=== PATIENT | male | born 1935 | race Caucasian/White ===

== ENCOUNTER 2018-03-08 18:11 | Emergency (ER) | payer MEDICARE ==
[~2018-03-08] VITALS: Ht 180.3 cm; Wt 67.1 kg
--- NOTE | ~2018-03-08 | EKG ---
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
[~2018-03-08 18:11] MED LIST: ASPIRIN81 M1 PO; DYRENIUM50 MG PO; SIMVASTATIN10 MG PO; VASOTEC2.5 MG PO
[2018-03-08 19:14] LABS: BILIRUBIN NEGATIVE (NEGATIVE); BLOOD NEGATIVE (NEGATIVE); CLARITY CLEAR (CLEAR); COLOR YELLOW (YELLOW); GLUCOSE NEGATIVE (NEGATIVE); KETONE TRACE (NEGATIVE); LEUKO ESTERASE NEGATIVE (NEGATIVE); NITRITE NEGATIVE (NEGATIVE); PH 7.5 (5.0-9.0); UROBILINOGEN 0.2 E.U./dl (0.2-1.0)
[2018-03-08 19:30] LABS: BASO % 0.4 % (0.0-1.0); EOS % 0.3 % (1.0-4.0); LYMPH # 1.3 10*3/uL (1.3-4.4); LYMPH % 18.3 % (27.0-41.0); MEAN CELL VOLUME 89.7 fl (80.0-94.0); MEAN CORPUSCULAR HGB 30.6 pg (27.0-31.0); MEAN CORPUSCULAR HGB CONC 34.1 g/dl (33.0-37.0); MEAN PLATELET VOLUME 8.6 fl (9.6-12.3); MONO # 0.4 10*3/uL (0.1-1.0); MONO % 5.4 % (3.0-9.0); NEUT # 5.1 10*3/uL (2.3-7.9); NEUT % 75.3 % (47.0-73.0); PLATELET COUNT AUTOMATED 213 10*3/uL (130-400); RED BLOOD COUNT 4.57 10*6/uL (4.50-5.90); RED CELL DISTRI WIDTH 13.5 % (0-14.5); WHITE BLOOD COUNT 6.8 10*3/uL (4.8-10.8)
[2018-03-08 19:31] LABS: EPITHELIAL CELLS 0-2; RBC 0-2 rbc/hpf (0-2); WBC 0-2 wbc/hpf (0-5)
[2018-03-08 19:48] LABS: ALBUMIN 3.8 gm/dl (3.1-4.5); ALKALINE PHOSPHATASE 91 U/L (45-117); BUN 18 mg/dl (7-24); CHLORIDE 106 mmol/L (98-107); CREATININE 0.89 mg/dL (0.70-1.30); LIPASE 153 U/L (73-393); POTASSIUM 3.4 mmol/L (3.5-5.1); SGOT/AST 11 IU/L (3-35); SGPT/ALT 20 U/L (12-78); SODIUM 138 mmol/L (136-145); TOTAL PROTEIN 6.7 gm/dL (6.4-8.2)
[2018-03-08 19:50] LABS: TROPONIN I < 0.015 ng/ml (<0.045)
== END 2018-03-09 02:12 | disposition short-term general hospital (02) ==
LOC: ED 18:11
PROVIDERS: Emergency Medicine; Student in an Organized Health Care Education/Training Program
DX: K55.059 Acute (reversible) ischemia of intestine, part and extent unspecified (principal); Z79.899 Other long term (current) drug therapy

== ENCOUNTER → 2021-02-22 | Outpatient (CLI) | payer MEDICARE | END | disposition home or self-care (01) | LOC: RAD 11:42 | PROVIDERS: ATTEND Surgery | DX: K58.9 Irritable bowel syndrome, unspecified (principal); K59.00 Constipation, unspecified ==

== ENCOUNTER → 2021-02-24 | Outpatient (CLI) | payer MEDICARE | END | disposition home or self-care (01) | LOC: RAD 00:35 | PROVIDERS: ATTEND Surgery | DX: K56.7 Ileus, unspecified (principal); K58.9 Irritable bowel syndrome, unspecified; K59.00 Constipation, unspecified ==

== ENCOUNTER → 2021-02-26 | Outpatient (CLI) | payer MEDICARE | END | disposition home or self-care (01) | LOC: RAD 00:12 | PROVIDERS: ATTEND Surgery | DX: K59.00 Constipation, unspecified (principal); K58.9 Irritable bowel syndrome, unspecified ==

== ENCOUNTER 2022-12-09 21:06 | Emergency (ER) | payer MEDICARE ==
[~2022-12-09] VITALS: Ht 180.3 cm; Wt 68.9 kg
[2022-12-09] MEDS ORDERED: ELIQUIS5 M1 PO (21:24)
[2022-12-09] MEDS ORDERED: LIPITOR10 MG PO (21:25)
[2022-12-09 22:04] LABS: BASO % 0.5 % (0.0-1.0); EOS # 0.1 10*3/uL (0.0-0.4); EOS % 0.8 % (1.0-4.0); HEMATOCRIT 36.8 % (42.0-52.0); LYMPH % 33.4 % (27.0-41.0); MEAN CELL VOLUME 91.3 fl (80.0-94.0); MEAN CORPUSCULAR HGB 30.5 pg (27.0-31.0); MEAN CORPUSCULAR HGB CONC 33.4 g/dl (33.0-37.0); MEAN PLATELET VOLUME 8.7 fl (9.6-12.3); MONO # 0.3 10*3/uL (0.1-1.0); MONO % 5.3 % (3.0-9.0); NEUT # 3.6 10*3/uL (2.3-7.9); NEUT % 59.7 % (47.0-73.0); PLATELET COUNT AUTOMATED 162 10*3/uL (130-400); RED BLOOD COUNT 4.03 10*6/uL (4.50-5.90); RED CELL DISTRI WIDTH 14.2 % (0-14.5)
== END 2022-12-09 23:26 | disposition home or self-care (01) ==
LOC: ED 21:06
PROVIDERS: Physician Assistant Medical
DX: K08.9 Disorder of teeth and supporting structures, unspecified (principal); I10 Essential (primary) hypertension; E78.00 Pure hypercholesterolemia, unspecified; Z98.890 Other specified postprocedural states